=== PATIENT | male | born 1945 | race Two or more races ===

== ENCOUNTER → 2022-03-17 11:46 | Outpatient (CLI) | payer OTHER | END | disposition home or self-care (01) | LOC: LAB 11:46 | PROVIDERS: ATTEND Internal Medicine Hematology & Oncology | DX: E55.9 Vitamin D deficiency, unspecified (principal); D51.1 Vitamin B12 deficiency anemia due to selective vitamin B12 malabsorption with proteinuria; D51.0 Vitamin B12 deficiency anemia due to intrinsic factor deficiency; C25.9 Malignant neoplasm of pancreas, unspecified; R97.0 Elevated carcinoembryonic antigen [CEA]; E03.8 Other specified hypothyroidism ==

== ENCOUNTER 2022-04-20 11:22 | Outpatient (CLI) | payer OTHER | END 2022-04-20 11:26 | disposition home or self-care (01) | LOC: LAB 11:22 | PROVIDERS: ATTEND Internal Medicine Hematology & Oncology | DX: D50.8 Other iron deficiency anemias (principal); R79.9 Abnormal finding of blood chemistry, unspecified; I10 Essential (primary) hypertension; R74.02 Elevation of levels of lactic acid dehydrogenase [LDH]; K76.89 Other specified diseases of liver; D51.8 Other vitamin B12 deficiency anemias; E03.8 Other specified hypothyroidism; E11.9 Type 2 diabetes mellitus without complications; E78.2 Mixed hyperlipidemia; G30.0 Alzheimer's disease with early onset ==

== ENCOUNTER 2022-05-06 08:07 | Outpatient (CLI) | payer OTHER | END 2022-05-06 08:15 | disposition home or self-care (01) | LOC: TOM 08:07 | PROVIDERS: ATTEND Internal Medicine Hematology & Oncology | DX: R10.84 Generalized abdominal pain (principal); D50.0 Iron deficiency anemia secondary to blood loss (chronic); R97.0 Elevated carcinoembryonic antigen [CEA]; D51.1 Vitamin B12 deficiency anemia due to selective vitamin B12 malabsorption with proteinuria; D50.8 Other iron deficiency anemias; D51.3 Other dietary vitamin B12 deficiency anemia; I10 Essential (primary) hypertension; E03.8 Other specified hypothyroidism; E11.9 Type 2 diabetes mellitus without complications; E78.2 Mixed hyperlipidemia; G30.0 Alzheimer's disease with early onset | CPT/HCPCS: 71260; 74177; Q9965 ==

== ENCOUNTER 2022-06-07 11:12 | Outpatient (CLI) | payer OTHER | END 2022-06-07 11:22 | disposition home or self-care (01) | LOC: LAB 11:12 | PROVIDERS: ATTEND Internal Medicine Hematology & Oncology | DX: I65.29 Occlusion and stenosis of unspecified carotid artery (principal); I73.9 Peripheral vascular disease, unspecified; E11.51 Type 2 diabetes mellitus with diabetic peripheral angiopathy without gangrene; M47.893 Other spondylosis, cervicothoracic region; I49.5 Sick sinus syndrome; K40.90 Unilateral inguinal hernia, without obstruction or gangrene, not specified as recurrent; I11.9 Hypertensive heart disease without heart failure; E11.69 Type 2 diabetes mellitus with other specified complication; E03.8 Other specified hypothyroidism; N40.0 Benign prostatic hyperplasia without lower urinary tract symptoms; D50.8 Other iron deficiency anemias; R79.9 Abnormal finding of blood chemistry, unspecified; R74.02 Elevation of levels of lactic acid dehydrogenase [LDH]; K76.89 Other specified diseases of liver; N39.0 Urinary tract infection, site not specified; R80.9 Proteinuria, unspecified; R94.4 Abnormal results of kidney function studies; D51.1 Vitamin B12 deficiency anemia due to selective vitamin B12 malabsorption with proteinuria; D51.3 Other dietary vitamin B12 deficiency anemia; R97.0 Elevated carcinoembryonic antigen [CEA]; E78.2 Mixed hyperlipidemia; G30.0 Alzheimer's disease with early onset ==